=== PATIENT | female | born 1990 | race Caucasian/White ===

== ENCOUNTER 2017-11-15 05:24 | Day surgery (SDC) | payer OTHER ==
[~2017-11-15] VITALS: Ht 165.1 cm; Wt 70.3 kg
--- NOTE | ~2017-11-15 | S ---
[facility] [place] [address] SURGICAL PATH RPT PROCEDURE Name: OLIVER LEHMAN Room #: DEP [facility]#: [id number] Admission: 11/15/17 Date of : 89 Discharge: 11/16/17 Report #: [id number] Path Case #: [id number] PATHOLOGY REPORT COLLECTION DATE: 11/15/2017 RECEIVED DATE: 11/15/2017 SUBMITTING PHYS: Dr. Néstor Rivera OTHER PHYS: ADDENDUM REPORT (Order Date: 11/17/2017 11:59) ADDENDUM COMMENT: Additional recuts are obtained and focal ulceration with moderate acute inflammation is identified in the surface. This likely represents the focus of the stone at the gallbladder neck identified clinically. There is no metaplasia, dysplasia or malignancy present. The originally rendered diagnosis is further modified as follows: Gallbladder, cholecystectomy: - Focal ulceration and acute cholecystitis in a background of mild chronic cholecystitis. - Cholelithiasis. ELECTRONICALLY SIGNED BY: Mago Hernandez M.D. DATE/TIME:11/17/2017 12:26 SPECIMEN(S) RECEIVED: A.Gallbladder * * * * * * * * * * * * FINAL DIAGNOSIS: Gallbladder, cholecystectomy: - Mild chronic cholecystitis. - Cholelithiasis. PATHOLOGIST: Mago Hernandez M.D. REPORT ELECTRONICALLY SIGNED BY: Mago Hernandez M.D. DATE/TIME: 11/16/2017 13:49 * * * * * * * * * * * * GROSS PATHOLOGY: Received in formalin labeled "Oliver Lehman gallbladder," is a 7.1 x 4.8 x 3.4 cm, previously opened gallbladder with dark pink serosal surfaces. Opening the gallbladder reveals dark arias, velvety mucosa and an average wall thickness of 0.2 cm. Calculi are present, measuring 1.1 cm in maximum dimension, possessing a bright yellow [facility] [place] [address] SURGICAL PATH RPT PROCEDURE Name: OLIVER LEHMAN Room #: [facility]#: [id number] Admission: 11/15/17 Date of : 89 Discharge: 11/16/17 Report #: [id number] Path Case #: [id number] granular appearance, and feeling friable to the touch. No masses are noted grossly. Fine [employer] Operator sections from the body and fundus are submitted along with the proximal margin in cassette A1. (TSD; 11/15/2017) CLINICAL HISTORY: Cholecystitis with cholelithiasis INITIAL CPT CODE(S): A; 60648 Professional services performed by [facility] at [address] , [place] [address] Technical services performed by [facility] at [address] [place] [address], [facility] [address] [address]. [facility] [address] [address] PHONE: [phone] DIRECTOR: Kimo W. Roverto, M.D. * * * END OF REPORT * * *
--- NOTE | ~2017-11-15 | O ---
[facility] [place] [address] OPERATIVE REPORT Name: OLIVER LEHMAN Room #: DEP [facility]#: [id number] Admission: 11/15/17 Attend Phys: Néstor Rivera MD Discharge: 11/16/17 Date of : 89 Report #: [id number] THIS REPORT FOR: //name// CC: PATRICK physician/PCP Néstor Rivera DATE OF SERVICE: 11/15/2017 PREOPERATIVE DIAGNOSIS: Cholecystitis with cholelithiasis. POSTOPERATIVE DIAGNOSIS: Acute cholecystitis with cholelithiasis, stones impacted gallbladder neck. ANESTHESIA: General. SURGEON: Néstor Rivera M.D. COMPLICATIONS: None. ESTIMATED BLOOD LOSS: 20 mL PROCEDURE PERFORMED: Laparoscopic cholecystectomy with cholangiogram. FINDINGS: The common bile duct is normal on operative cholangiogram. The gallbladder was distended, tight and thickened. There was stone stuck in the gallbladder neck. DESCRIPTION OF PROCEDURE: With the patient under general anesthesia, abdomen was prepped and draped in sterile fashion. A 0.25% Marcaine was used to anesthetize the skin inferior to the umbilicus. There is a scar there from her previous ovarian cyst surgery. This was utilized and slightly enlarged. The fascia was identified, grasped with hemostat. Fascia was then opened under visualization, 0 Vicryl suture placed on the fascia for retraction. Veress needle was then placed through the peritoneum with the abdominal wall lifted anteriorly. Pneumoperitoneum was established without difficulty. After creating pneumoperitoneum pressure of 15, an 11 mm trocar was placed into the pneumoperitoneum. This was placed under visualization. Two 5 mm trocars were placed in the right upper quadrant and a 5 mm trocar was placed in right epigastrium. The patient was placed in a reverse Trendelenburg position right side tilted up. The gallbladder was noted to be thickened and taut. Gallbladder wall was also thickened. The gallbladder was lifted over the liver and there was chronic adhesion to the ventral surface of the gallbladder. These adhesions were taken down. The gallbladder was then grasped more proximally with a second grasper. Peritoneum over the cystic duct was then dissected free without difficulty. The cystic duct was isolated. There appears to be a centimeter stone in the gallbladder neck that I can palpate. Once the cystic [address] [address] OPERATIVE REPORT Name: OLIVER LEHMAN [id number]: 11/15/17 Attend Phys: Néstor Rivera MD Discharge: 11/16/17 Date of : 89 Report #: [id number] duct was isolated, a clip was placed in junction of cystic duct to the gallbladder. Cystic duct was then opened proximal to the clip. The cystic duct was milked. There was no stone in the cystic duct. Cholangiogram catheter was then placed. A clip was used to hold the catheter in place. Fluoroscopic cholangiogram was obtained. The patient did have a fairly short cystic duct. The common bile duct filled out well. I do not see any filling defect in the common duct. The cholangiogram catheter identified the cystic duct. No harm to the common duct was seen. The cholangiogram catheter was then removed. Proximal cystic duct was then clipped x 2. The cystic duct was then divided between the clips. Cystic artery was then identified, isolated, clipped x 2 proximally, 1 distally and then divided. Gallbladder was then freed from the liver bed. There was edema in the gallbladder wall. Gallbladder was able to be freed. Gallbladder was placed in a specimen bag. When I pulled the specimen bag up to the 11 mm trocar, it was so big that it would not come out. The fascia was opened slightly superiorly and inferiorly with cautery. The bag was then partially extracted. The gallbladder was then partially pulled out. Gallbladder was grasped with hemostat. The gallbladder was then opened. Suction aluminum siding installer was then placed through the gallbladder suctioning the bile. The gallbladder came out. The stones were then able to be extracted out of the gallbladder. Once most of the stone came out, the gallbladder was then easily removed in the bag. There was no spillage. The liver bed was checked, hemostasis excellent. No bleedings identified. No bile identified. Irrigation was aspirated out. Trocars removed. CO2 was evacuated as much as possible. The fascia defect infraumbilically was closed with [id number] 0 Vicryl x 3. The skin was then irrigated, closed with 5-0 PDS. The patient tolerated the procedure well. <ELECTRONICALLY SIGNED> By: Néstor Rivera MD 12/02/17 1426 1600 1711 Néstor Rivera MD /nt
[~2017-11-15 05:24] MED LIST: HYDROCODONE-AP1 EAC6 PO; VALACYCLOVIR500 MG PO
[2017-11-15 11:54] LABS: HEMATOCRIT 39.2 % (37.0-47.0); HEMOGLOBIN 13.4 gm/dL (12.0-15.0)
[2017-11-15 12:31] VITALS: BP 103/59
[2017-11-15 18:30] VITALS: BP 113/73
[2017-11-15 20:17] VITALS: BP 98/64
[2017-11-15 23:55] VITALS: BP 101/57
[2017-11-16 04:27] VITALS: BP 96/49
[2017-11-16 08:20] VITALS: BP 109/61
[2017-11-16] MEDS ORDERED: NORCO 5-325 TA1 EACH PO (12:00)
[2017-11-16 12:13] VITALS: BP 109/61
== END 2017-11-16 13:28 | disposition home or self-care (01) ==
LOC: OR 05:24 → TBA 05:24 → OR 08:33 → 4E 18:14 → OR 11-16 13:28
PROVIDERS: Surgery
DX: K80.13 Calculus of gallbladder with acute and chronic cholecystitis with obstruction (principal); Z98.890 Other specified postprocedural states; Z79.891 Long term (current) use of opiate analgesic
CPT/HCPCS: 10783; 50010; 50101; 50411; 50555; 50558; 51489; 51687; 53307; 53310; 53312; 55245; 56462; 56525; 56526; 62110; 62900; 70005